=== PATIENT | female | born 1980 | race Caucasian/White ===

== ENCOUNTER 2018-05-26 08:12 | Inpatient (IN) | payer OTHER ==
--- NOTE | 2018-05-26 09:55 | HP ---
General Information - Reason for Visit Scheduled induction of labor at 41 0/7 weeks gestation - General Information Maternal Age: 37 Grav: 3 Para: 1 SAB: 1 IEA: 0 Estimated Due Date: 05/19/18 Determined By: LMP Maternal Blood Type and Rh: A Positive - Results this Serology/RPR Result: Non-Reactive Rubella Result: Non-Immune HBsAg Result: Negative HIV Result: Negative GBS Culture Result: Negative Past Medical History Delivery History: Hx Uncomplicated Vaginal Delivery Pertinent Past Medical History: See Records - Depression/ anxiety, on zoloft Pertinent Past Surgical History: None Pertinent Family History: See Records - HTN, DM, uterine cancer - Antepartal Records Antepartal Records: Reviewed, Complicated by: - AMA, CF carrier, rubella nonimmune Review of Systems Constitutional: Comfortable CV Complaint: No Respiratory: Shortness of Breath: No Gastrointestinal: No Nausea/Vomiting, Normal Bowel Movement Genitourinary: No Dysuria, No Bleeding, No Leaking Fluid Musculoskeletal: No Complaint, No Epigastric Pain Neurological: No Headache, No Visual Changes Movement: Normal Exam Allergies/Adverse Reactions: Allergies No Known Allergies Allergy (Verified 05/26/18 08:56) Vital Signs 05/26/18 08:20 Temperature 98.1 F Pulse Rate 90 Respiratory 17 Rate Blood Pressure 136/83 (mmHg) O2 Sat by Pulse 98 Oximetry - Measurements Height: 5 ft 6.5 in Weight: 100.698 kg Weight in lbs: 222.662764 Body Mass Index (BMI): 35.3 Pre- Weight: 86.183 kg Weight Gained This : 32 lbs and 0 ozs - Exam Breast: Breast Exam Deferred CVA: No CVA Tenderness Extremities: Edema - mild nonpitting pedal edema bilaterally Heart: Normal Rhythm/Heart Sounds HEENT: No Significant Findings Lungs: Clear Bilaterally Rectal: Rectal Exam Deferred Reflexes: DTR 2+ Thyroid: No Thyromegaly - Abdominal Exam Abdomen Exam: Non-Tender, Fundal Height Consistent with Dates - Ultrasound/Biophysical Profile Ultrasound Status: Not Done Targeted Exam Findings See L&D Outpatient Visit Provider Note for Findings: N/A Estimated Weight: 8# Cervical Exam: 3cm Effacement: 50% Station: -2 Presenting Part: Vertex Membrane Status: Intact Bleeding/Discharge: None EFM Findings - External Monitor Findings Baseline Heart Rate: 140 External Monitor Findings: Accelerations Present, No Pattern of Variable or Late Decelerations, Variability Moderate, Baseline Stable Contractions: Irregular, Mild Assessment/Plan - Assessment 37 year old at 41 0/7 weeks gestation, membranes intact, GBS negative, no evidence of acidemia here for induction of labor for postdates. - Obstetrical Risk Factors Obstetrical Risk Factors: Post-Dates - Plan Plan: Induction, Admit - Anticipate Vaginal Delivery Plan Comment: Discussed options with pt. She was hoping to avoid Pitocin if possible, preferred to try AROM. However, cervix posterior and baby not low enough for me to feel comfortable doing that yet. Discussed Pitocin at length. Pt agrees to initiate Pitocin induction. Once active labor is happening, can try to taper down Pitocin and potentially turn off if labor continues. Will consider AROM when baby is lower in pelvis and cervix more midline or anterior. Continuous EFM while on Pitocin per protocol. Pt may ambulate and eat/ drink ad julio at this time. - Date/Time of Admission Date of Admission: 05/26/18 Time of Admission: 09:01
[2018-05-26 09:56] LABS: ABS Basophils 0 10^3/ul (0-0.2); ABS Eosinophils 0 10^3/ul (0-0.6); ABS Lymphocytes 1.2 10^3/ul (1.0-4.8); ABS Monocytes 0.6 10^3/ul (0-0.8); ABS Neutrophils 6.4 10^3/ul (1.5-7.7); ABS Nucleated RBC 0 10^3/ul; Eosinophil % 0.5 %; Hematocrit 33 % (35-47); Hemoglobin 11.5 g/dl (12.0-16.0); Lymphocyte % 14.1 %; Mean Corpuscular HGB Conc 34 g/dl (31-36); Mean Corpuscular Hemoglobin 30 pg (27-31); Mean Corpuscular Volume 88 fL (80-97); Mean Platelet Volume 8.5 fL (7.4-10.4); Nucleated Red Blood Cells % 0.2; Platelet Count 152 10^3/ul (150-450); Red Blood Count 3.78 10^6/ul (4.00-5.40); Red Cell Distribution Width 15 % (10.5-15); White Blood Count 8.2 10^3/ul (3.5-10.8)
[2018-05-26] MEDS ORDERED: Oxytocin in LR* 20 UNITS/1,000 ML BAG IVPB SCH (10:00)
--- NOTE | 2018-05-26 11:56 | PN ---
Progress Note - Progress Note Date of Service: 05/26/18 SOAP: Subjective: Pt feeling ctx, still comfortable, feels them as "tightening." She reports feeling shaky, reassured normal as labor gets going. Eating lunch. Objective: Pitocin at 6mu/min FHR 130 baseline/ +accels/ no decels/ moderate variability UCs Q 3 minutes, mild to moderate to palpation, lasting 50-70 seconds Membranes intact Cervical exam deferred Assessment: 37 year old at 41 0/7 weeks gestation undergoing induction of labor for postdates. No evidence of acidemia. Appears to be responding to Pitocin. Plan: Continue Pitocin induction. Labor support. Can use tub, ambulation if desired.
--- NOTE | 2018-05-26 13:55 | PN ---
Progress Note - Progress Note Date of Service: 05/26/18 SOAP: Subjective: Pt still comfortable with ctx, is aware of them, feels tightness but not painful. Feels active FM. Objective: FHR 135/ moderate variability/ + accels/ no decels UCs Q3 minutes, mild to moderate, lasting 50-60 minutes Membranes intact Pitocin increased to 12 mu Assessment: Pt still appears to be in early labor, cervical exam deferred at this time. No evidence of acidemia, Cat I tracing Plan: Continue Pitocin induction. Consider cervical exam to evaluate for feasibility of AROM. Continuous EFM while on Pitocin. Labor support, tub, ambulation, ball for comfort. Pt may consider nitrous oxide when she is more uncomfortable.
--- NOTE | 2018-05-26 17:50 | PN ---
Progress Note - Progress Note Date of Service: 05/26/18 SOAP: Subjective: Pt still comfortable with contractions. Aware that they are happening, feels they are too strong for her to sleep. at bedside, supportive. Objective: Cervix: 4-5cm/60%/ -1 FHR: 130 baseline/ + accels/ no decels/ moderate variability UCs: Q 2-3 minutes, 50-70 seconds long BPs mildly elevated, last BP 141/82. Pt denies headaches, upper abdominal pain. Membranes intact Assessment: 37 year old at 41 0/7 weeks gestation undergoing induction for postdates Cervix making slow change, still not in active labor Plan: Will continue Pitocin for another 2 hours, then recheck cervix. If no change in dilation, will consider Pitocin break vs AROM. Will monitor BPs hourly, if they continue to be elevated, will check PEC labs.
--- NOTE | 2018-05-26 21:12 | PN ---
Progress Note - Progress Note Date of Service: 05/26/18 SOAP: Subjective: Pt continues to be fairly comfortable, despite frequent contractions. She reports that they might be feeling a little stronger, but still essentially the same. Objective: FHR Cat I UCs 2-3 minutes, 50-70 seconds long Cervical exam unchanged from previous (4-5 cm/ 60%/ -1) Has been on 24 mu Pitocin for over an hour Assessment: Pt still not in active labor No evidence of acidemia Membranes intact Plan: Pitocin off. Will try either restarting tonight in 1-2 hours, or waiting until morning to restart.
[2018-05-27] MEDS: Sertraline* 50 MG TAB PO SCH (09:00)
--- NOTE | 2018-05-27 09:30 | PN ---
Progress Note - Progress Note Date of Service: 05/27/18 SOAP: Subjective: [Pt reports she rested well overnight, denies contractions, reports + FM. ] Objective: [BP: 120/75, P:87, T:98.6, FHT: 135 BPM, +accels, -decels, moderate variability cervix:4-5/80/-1, ctx mild q 20 min] Assessment: [37 y.o., post dates IOL] Plan: [1) AROM: clear 2) Position changes and ambulation 3) Anticipate vaginal delivery 4) Discussed options for IOL and pt agrees with plan for AROM and ambulation]
--- NOTE | 2018-05-27 12:07 | PN ---
Progress Note - Progress Note Date of Service: 05/27/18 SOAP: Subjective: [Pt reports increased pressure, and contractions more intense in front and back. ] Objective: [FHT: 135 bpm, +accels, -decels, moderate variability] Assessment: [37 y.o. , 41w1d EGA, early labor] Plan: [1) Continue position changes for and therapeutic support 2) Pt counseled on and requests nitrous oxide for pain mgmt 3) Reevaluate PRN]
--- NOTE | 2018-05-27 15:35 | PROCNOTE ---
[facility] OB: Delivery Note - Delivery A Date of : 05/27/18 Time of : 14:57 [place] Weight at : 10 lb 11 oz Score 1 Minute: 5 Gestational Age in Weeks and Days at Delivery: 41 Weeks and 1 Days Delivery Method: Spontaneous Vaginal Labor: Induced Did Patient attempt ?: N/A, No Previous Amniotic Fluid: Clear Estimated Blood Loss: 300 Anesthesia/Analgesia: Nitrous-Labor Delivered By: Myrtle Myers - Nursery Level of Nursery: Regular/Bedside - Perineum Perineal Injury: Perineal Laceration, 1st Degree Perineal Repair: By Delivering Practioner - Events Delivery Events of Note: Pitocin Only After Delivery, Shoulder Dystocia - Additional Delivery Notes Additional Delivery Notes: Pt post dates and present for induction of labor, AROM was done this AM with onset of regular contraction. Pt progress to fully dilated with urge to push after 3hr 36min. Pt pushed effectively for approx 1hr. Turtle sign noted with and help was called and bed flattened. head delivered in OA position with restitution to direct OP. Anterior shoulder did not come with gentle traction and Wood's maneuver was used to attempt to delivery anterior shoulder with legs in Cece and suprapubic pressure applied. Pt was repositioned with legs in McRobert's position and the posterior arm was delivered followed by the anterior shoulder. Gentle traction applied and delivered to maternal abdomen. Less than 60sec on perineum. Cord clamped x 2 and cut by provider and infant delivered to warmer. Special care nurse present for delivery. APGARS: 5/8. weight: 10lbs 11oz. Spontaneous delivery of intact placenta after 4 mins with moderate bleeding resolved with fundal massage, Pitocin IV at 150ml/hr. Perineum with 1st degree laceration repaired with 3.0 vicryl rapide with lidocaine for pain mgmt. Mother and baby in stable condition, anticipate normal course.
[2018-05-27] MEDS ORDERED: Glycerin ADULT SUPP PR PRN (17:04)
[2018-05-27] MEDS ORDERED: Witch Hazel PAD* JAR TOPICAL PRN (17:04)
[2018-05-27] MEDS ORDERED: Dibucaine 1% 28.35 GM TUBE PR PRN (17:04)
[2018-05-27] MEDS ORDERED: Simethicone TAB* 80 MG TAB.CHEW PO SCH (17:30)
[2018-05-27] MEDS ORDERED: Oxytocin in LR* 20 UNITS/1,000 ML BAG IVPB SCH (18:00)
[2018-05-27] MEDS: Ibuprofen TAB* 600 MG PO PRN (20:10)
[2018-05-27] MEDS: Docusate CAP* 100 MG PO SCH (20:11)
[2018-05-28 06:39] LABS: ABS Basophils 0 10^3/ul (0-0.2); ABS Eosinophils 0 10^3/ul (0-0.6); ABS Lymphocytes 1.4 10^3/ul (1.0-4.8); ABS Monocytes 0.7 10^3/ul (0-0.8); ABS Neutrophils 7.4 10^3/ul (1.5-7.7); ABS Nucleated RBC 0 10^3/ul; Eosinophil % 0.2 %; Hematocrit 26 % (35-47); Hemoglobin 9.2 g/dl (12.0-16.0); Lymphocyte % 14.6 %; Mean Corpuscular HGB Conc 35 g/dl (31-36); Mean Corpuscular Hemoglobin 31 pg (27-31); Mean Corpuscular Volume 88 fL (80-97); Mean Platelet Volume 8.3 fL (7.4-10.4); Nucleated Red Blood Cells % 0; Platelet Count 137 10^3/ul (150-450); Red Blood Count 2.99 10^6/ul (4.00-5.40); Red Cell Distribution Width 14 % (10.5-15); White Blood Count 9.6 10^3/ul (3.5-10.8)
[2018-05-28] MEDS: Docusate CAP* 100 MG PO SCH ×3 (08:46→19:53)
[2018-05-28] MEDS: Ferrous Gluconate TAB* 324 MG TAB PO SCH ×2 (08:46→19:50)
[2018-05-28] MEDS: Ibuprofen TAB* 600 MG PO PRN ×4 (08:46→20:32)
[2018-05-28] MEDS: Sertraline* 50 MG TAB PO SCH (08:46)
[2018-05-28] MEDS: Acetaminophen TAB* 325 MG PO PRN ×2 (13:06→22:09)
--- NOTE | 2018-05-28 21:16 | PTEDU ---
Patient Name: ADRIENNE FARAH ADRIENNE FARAH selected video: Never Ever Shake a Baby to view on 05/28/2018 at 9:15:11 PM [id number]
[2018-05-29] MEDS: Ibuprofen TAB* 600 MG PO PRN ×2 (02:26→09:53)
[2018-05-29] MEDS: Acetaminophen TAB* 325 MG PO PRN ×2 (04:04→08:07)
[2018-05-29] MEDS: Ferrous Gluconate TAB* 324 MG TAB PO SCH (08:06)
[2018-05-29] MEDS: Sertraline* 50 MG TAB PO SCH (08:06)
[2018-05-29] MEDS: Docusate CAP* 100 MG PO SCH (08:06)
[2018-05-29] MEDS ORDERED: Measles, Mumps,Rubella VACC* 0.5 ML/VIAL SUBCUT ONE (11:51)
[2018-05-29 12:17] VITALS: BP 130/73
== END 2018-05-29 13:58 | disposition home or self-care (01) | DRG 560 ==
LOC: MCHOBOUT 08:12 → MCHOB 09:01
PROVIDERS: ADMIT Midwife; ATTEND Midwife
PROC: 10E0XZZ Delivery of Products of Conception, External Approach (ICD-10-PCS; principal; 2018-05-27)
PROC: 3E033VJ Introduction of Other Hormone into Peripheral Vein, Percutaneous Approach (ICD-10-PCS; 2018-05-27)
PROC: 10907ZC Drainage of Amniotic Fluid, Therapeutic from Products of Conception, Via Natural or Artificial Opening (ICD-10-PCS; 2018-05-27)
PROC: 0HQ9XZZ Repair Perineum Skin, External Approach (ICD-10-PCS; 2018-05-27)
DX: O48.0 Post-term pregnancy (principal); Z37.0 Single live birth; O70.0 First degree perineal laceration during delivery; O99.344 Other mental disorders complicating childbirth; F41.8 Other specified anxiety disorders; O77.0 Labor and delivery complicated by meconium in amniotic fluid; O66.0 Obstructed labor due to shoulder dystocia; O90.81 Anemia of the puerperium; D64.9 Anemia, unspecified; Z3A.41 41 weeks gestation of pregnancy
CPT/HCPCS: 36415; 85025; 86850; 86900; 86901; 90707; A9270-GY